=== PATIENT | female | born 1985 | race Caucasian/White ===

== ENCOUNTER 2020-05-06 14:30 | Emergency (ER) | payer OTHER ==
[~2020-05-06] VITALS: Ht 175.3 cm; Wt 86.2 kg
[~2020-05-06 14:30] MED LIST: CRUTCH4 USE; FAMO20 PO; FAMO40 PO; HYDACE5 PO; IBUP600 PO; KETO10 PO; METR500 PO; OXYACE5T PO; OXYACE7.5T PO; PROM25 PO; RXOXYACE PO; TEQUIN
[2020-05-06] MEDS ORDERED: IBUP800 PO (15:33)
[2020-05-06] MEDS ORDERED: Norco 5-325 Ta1 EACH PO (15:33)
== END 2020-05-06 15:37 | disposition home or self-care (01) ==
LOC: ER 14:30
DX: S90.32XA Contusion of left foot, initial encounter (principal); F17.200 Nicotine dependence, unspecified, uncomplicated; W22.8XXA Striking against or struck by other objects, initial encounter
CPT/HCPCS: 73630; 99283-25

== ENCOUNTER → 2021-02-19 | Outpatient (CLI) | payer OTHER ==
[~2021-02-19] MED LIST changes: +IBUP800 PO; +Norco 5-325 Ta1 EACH PO
[2021-02-19 10:38] LABS: BASOPHILS ABSOLUTE AUTO 0.02 K/mm3 (0.00-0.23); BASOPHILS PERCENT AUTO 0 % (0-2); EOSINOPHILS ABSOLUTE AUTO 0.08 K/mm3 (0.00-0.68); EOSINOPHILS PERCENT AUTO 1 % (0-6); Hemoglobin 13.4 g/dL (11.5-16.0); IMMATURE GRAN ABSOLUTE AUTO 0.04 K/mm3 (0.00-0.10); IMMATURE GRAN PERCENT AUTO 0 % (0-1); LYMPHOCYTES ABSOLUTE AUTO 1.54 K/mm3 (0.84-5.20); LYMPHOCYTES PERCENT AUTO 13 % (21-46); MONOCYTES ABSOLUTE AUTO 0.57 K/mm3 (0.16-1.47); MONOCYTES PERCENT AUTO 5 % (4-13); Mean Corpuscular HGB 32.5 pg (26.0-34.0); Mean Corpuscular HGB Conc 33.5 g/dL (31.5-36.5); Mean Corpuscular Volume 97 fL (80-100); Mean Platelet Volume 10.1 fL (9.1-12.4); NEUTROPHILS ABSOLUTE AUTO 9.77 K/mm3 (1.96-9.15); NEUTROPHILS PERCENT AUTO 81 % (41-73); Platelet Count 232 K/mm3 (150-400); RDW Coefficient Variation 12.8 % (11.7-14.2); RDW Standard Deviation 45.6 fL (35.1-46.3); Red Blood Cell Count 4.12 M/mm3 (3.80-5.20); White Blood Cell Count 12.02 K/mm3 (4.00-11.30)
== END | disposition home or self-care (01) ==
LOC: LAB 10:34 → LAB SHORT 10:34
PROVIDERS: Physician Assistant
DX: N39.0 Urinary tract infection, site not specified (principal)
CPT/HCPCS: 85025

== ENCOUNTER 2021-02-27 11:05 | Emergency (ER) | payer OTHER ==
[~2021-02-27] VITALS: Ht 175.3 cm; Wt 90.7 kg
[2021-02-27 12:08] LABS: Source, Urine Clean Catch
[2021-02-27 12:14] LABS: BASOPHILS ABSOLUTE AUTO 0.02 K/mm3 (0.00-0.23); BASOPHILS PERCENT AUTO 0 % (0-2); EOSINOPHILS ABSOLUTE AUTO 0.16 K/mm3 (0.00-0.68); EOSINOPHILS PERCENT AUTO 2 % (0-6); Hematocrit 37.2 % (33.0-51.0); Hemoglobin 12.1 g/dL (11.5-16.0); IMMATURE GRAN ABSOLUTE AUTO 0.08 K/mm3 (0.00-0.10); IMMATURE GRAN PERCENT AUTO 1 % (0-1); LYMPHOCYTES ABSOLUTE AUTO 1.87 K/mm3 (0.84-5.20); LYMPHOCYTES PERCENT AUTO 18 % (21-46); MONOCYTES ABSOLUTE AUTO 0.82 K/mm3 (0.16-1.47); MONOCYTES PERCENT AUTO 8 % (4-13); Mean Corpuscular HGB 31.3 pg (26.0-34.0); Mean Corpuscular HGB Conc 32.5 g/dL (31.5-36.5); Mean Corpuscular Volume 96 fL (80-100); Mean Platelet Volume 9.4 fL (9.1-12.4); NEUTROPHILS ABSOLUTE AUTO 7.29 K/mm3 (1.96-9.15); NEUTROPHILS PERCENT AUTO 71 % (41-73); Platelet Count 369 K/mm3 (150-400); RDW Coefficient Variation 12.5 % (11.7-14.2); RDW Standard Deviation 44.3 fL (35.1-46.3); Red Blood Cell Count 3.86 M/mm3 (3.80-5.20); White Blood Cell Count 10.24 K/mm3 (4.00-11.30)
[2021-02-27 12:17] LABS: Bilirubin, Urine Neg (Neg); Blood, Urine 1+ (Neg); Glucose Qualitative, Urine Neg (Neg); Ketones, Urine Neg (Neg); Leukocyte Esterase, Urine Neg (Neg); Nitrite, Urine Neg (Neg); Protein, Urine Neg (Neg); Urobilinogen, Urine NORM (Normal)
[2021-02-27 12:19] LABS: Appearance, Urine Clear (Clear); Color, Urine Yellow (P-Yellow)
[2021-02-27 12:33] LABS: Bacteria Not Seen /hpf; Red Blood Cells, Urine 0-2 /hpf (0-2); Squamous Epithelial Cells Rare /hpf (Few); White Blood Cells, Urine Not Seen /hpf (0-5)
[2021-02-27 12:38] LABS: Alanine Aminotransfer (ALT/SGP 57 U/L (12-78); Albumin/Globulin Ratio 0.6 (0.8-1.8); Alk Phos 111 U/L (50-136); Anion Gap 5 mmol/L (6-16); Aspartate Aminotrans (AST/SGOT 24 U/L (12-37); Bilirubin, Total 0.2 mg/dL (0.1-1.0); Blood Urea Nitrogen 14 mg/dL (8-24); Bun/Creatinine Ratio 24.7 (12.0-20.0); CO2, Blood 28 mmol/L (21-32); Chloride, Blood 107 mmol/L (98-108); Creatinine, Blood 0.57 mg/dL (0.40-1.00); Globulin, Blood 4.8 g/dL (2.2-4.0); Glomerular Filtration Rate >60 (60-); Glucose, Blood 96 mg/dL (70-99); Potassium, Blood 4.3 mmol/L (3.5-5.5); Sodium, Blood 140 mmol/L (136-145); Total Protein, Blood 7.8 g/dL (6.4-8.2)
[2021-02-27] MEDS ORDERED: CEFD300 PO (13:07)
[2021-02-27] MEDS ORDERED: Norco 5-325 Ta1 EACH PO (13:07)
== END 2021-02-27 13:58 | disposition home or self-care (01) ==
LOC: ER 11:05
PROVIDERS: Emergency Medicine
DX: N10 Acute pyelonephritis (principal); F17.200 Nicotine dependence, unspecified, uncomplicated; Z20.822 Contact with and (suspected) exposure to COVID-19
CPT/HCPCS: 36415; 76770; 80053; 81001; 81025; 85025; 96374; 96375; 99284-25; A9270; J1885; J2405; J7030

== ENCOUNTER → 2023-03-05 | Outpatient (CLI) | payer OTHER ==
[~2023-03-05] MED LIST changes: +CEFD300 PO; +CEPH500 PO; +ONDA4 PO
[2023-03-10 08:09] LABS: HPV 16 Negative (Negative); HPV 18 Negative (Negative); HPV OTHER HR TYPES Negative (Negative)
== END | disposition home or self-care (01) ==
LOC: LAB SHORT 12:53 → LAB 12:53
PROVIDERS: Physician Assistant
DX: Z01.419 Encounter for gynecological examination (general) (routine) without abnormal findings (principal)
CPT/HCPCS: 87624; G0145

== ENCOUNTER 2023-06-01 03:41 | Emergency (ER) | payer OTHER ==
[~2023-06-01] VITALS: Ht 175.3 cm; Wt 95.2 kg
[2023-06-01] MEDS ORDERED: BUSPIRONE HCL7.5 M6 (04:00)
[2023-06-01] MEDS ORDERED: BUPROPION XL150 M1 (04:00)
[2023-06-01] MEDS ORDERED: ATOMOXETINE HCL80 M3 (04:00)
[2023-06-01 04:52] LABS: Influenza A, PCR NEGATIVE (NEGATIVE); Influenza B, PCR NEGATIVE (NEGATIVE); Resp Syncytial Virus, PCR NEGATIVE (NEGATIVE); SARS-Cov-2 (COVID-19) PCR, MMC NEGATIVE (NEGATIVE)
[2023-06-01] MEDS ORDERED: ONDA4ODT MM (10:12)
[2023-06-01 10:23] VITALS: BP 146/81
== END 2023-06-01 10:24 | disposition home or self-care (01) ==
LOC: ER 03:41
PROVIDERS: Student in an Organized Health Care Education/Training Program
DX: B34.9 Viral infection, unspecified (principal); F17.200 Nicotine dependence, unspecified, uncomplicated; Z11.52 Encounter for screening for COVID-19; Z79.899 Other long term (current) drug therapy
CPT/HCPCS: 0241U; 74019; 96361; 96374; 96375; 99283-25; J1790; J1885; J2405; J7030

== ENCOUNTER 2024-03-16 08:53 | Emergency (ER) | payer OTHER ==
[~2024-03-16] VITALS: Ht 175.3 cm; Wt 97.5 kg
[~2024-03-16 08:53] MED LIST changes: +ATOMOXETINE HCL80 M3; +BUPROPION XL150 M1; +BUSPIRONE HCL7.5 M6; +ONDA4ODT MM
[2024-03-16 09:18] VITALS: BP 149/103
[2024-03-16] MEDS ORDERED: HYDROmorphone HCl/Pf 1MG SYR IM ONE (09:40)
[2024-03-16] MEDS ORDERED: OxyCODONE HCL 5 MG TAB PO ONE (12:35)
[2024-03-16] MEDS ORDERED: Acetaminophen 500 MG Tab PO ONE (12:35)
[2024-03-16] MEDS ORDERED: IBUP600 PO (12:41)
[2024-03-16] MEDS ORDERED: Roxicodone5 MG PO (12:41)
== END 2024-03-16 13:07 ==
LOC: ER 08:53
DX: S42.211A Unspecified displaced fracture of surgical neck of right humerus, initial encounter for closed fracture (principal); F17.200 Nicotine dependence, unspecified, uncomplicated; V89.2XXA Person injured in unspecified motor-vehicle accident, traffic, initial encounter; Z79.899 Other long term (current) drug therapy
CPT/HCPCS: 29105; 70450; 73030; 73200; 96372-59; 99283-25; A9270; J1170

== ENCOUNTER 2024-03-31 10:14 | Day surgery (SDC) | payer OTHER ==
[~2024-03-31] VITALS: Ht 175.3 cm; Wt 104.3 kg
[~2024-03-31 10:14] MED LIST changes: +CeFAZolin Sodium 2,000 MG VIAL ONE; +Lactated Ringer's 1,000 ML IV ONE; +NS 50 ML IV ONE; +Roxicodone5 MG PO
[2024-03-31] MEDS ORDERED: Lactated Ringer's 1,000 ML IV ONE (11:06)
[2024-03-31] MEDS ORDERED: ACET500 (11:10)
[2024-03-31] MEDS ORDERED: propofoL 20 ML IV ONE (11:11)
[2024-03-31] MEDS ORDERED: Midazolam HCl 1MG / ML 2ML Vial ONE (11:11)
[2024-03-31] MEDS ORDERED: FentaNYL Citrate 50 MCG/ML 2 ML Injection ONE ×2 (11:11→13:01)
[2024-03-31] MEDS ORDERED: Bupivacaine 0.5% HCl 5 MG/ML 30MLVIAL ONE (11:20)
[2024-03-31] MEDS ORDERED: Lidocaine 2%-Epineph 1:200000 20 ML SDV ONE (11:20)
[2024-03-31] MEDS ORDERED: Dexmedetomidine HCL 200 MCG / 2 ML ONE (11:26)
[2024-03-31] MEDS ORDERED: OxyCODONE HCL 5 MG TAB ONE ×2 (15:43→16:36)
[2024-03-31 15:57] VITALS: BP 123/71
--- NOTE | 2024-03-31 17:37 | NUR ---
03/31/24 [id number] Hannah Martin PT 02 SATS WERE STAYING BETWEEN 91-96% ROOM AIR. THIS RN GAVE PT AN INCENTIVE SPIROMETER AND INSTRUCTED PT TO USE 10X PER HOUR UNTIL NORMAL ACTIVITY RESUMES. PT DEMONSTRATED PROPER USE OF INCENTIVE SPIROMETER. PATIENTS OXYGEN SATS IMPROVED AND STAYED ABOVE 95% AFTER 5 USES OF INCENTIVE SPIROMETER.
== END 2024-03-31 17:29 | disposition home or self-care (01) ==
LOC: ORSCSDS 10:14
PROVIDERS: Orthopaedic Surgery
PROC: 0PSC04Z Reposition Right Humeral Head with Internal Fixation Device, Open Approach (ICD-10-PCS; principal; 2024-03-31 11:45)
DX: S42.211A Unspecified displaced fracture of surgical neck of right humerus, initial encounter for closed fracture (principal); V49.9XXA Car occupant (driver) (passenger) injured in unspecified traffic accident, initial encounter; E66.9 Obesity, unspecified; Z68.34 Body mass index [BMI] 34.0-34.9, adult; Z87.891 Personal history of nicotine dependence; F32.A Depression, unspecified
CPT/HCPCS: A9270; C1713; J0690; J2250; J2704; J3010; J7120